=== PATIENT | female | born 1980 | race African-American/Black ===

== ENCOUNTER 2019-12-09 16:27 | Emergency (ER) | payer BC, SELFPAY ==
--- NOTE | ~2019-12-09 | XR_ITS ---
EXAMINATION: XR foot LT min 3V DATE: 12/09/2019 17:04 INDICATION: Left foot injury. TECHNIQUE: 4 views of left foot were obtained. COMPARISON: None. FINDINGS: Bone alignment is normal. No fracture. Joint spaces are well maintained. There are enthesop hytes at the posterior and plantar aspects of calcaneal tuberosity. IMPRESSION: 1. No fracture. Reviewed, dictated and finalized at location A. IMPRESSION: 1. No fracture.
[2019-12-09 16:41] VITALS: BP 121/74; PULSE 82; RESP 16; TEMP 36.7; O2SAT 100
--- NOTE | 2019-12-09 17:16 | ED.LOWEXIN ---
HPI - Extremity Injury (Lower) General Chief Complaint: Extremity Injury, Lower Stated Complaint: left foot injury Time Seen by Provider: 12/09/19 17:16 Source: patient Mode of arrival: ambulatory Limitations: no limitations History of Present Illness HPI Narrative: Cassie Dos Santos is a 39 yo frmale who fell off a porch on Friday and hurt L lateral ankle - Lateral swelling with pain, can move toes Related Data Allergies Allergy/AdvReac Type Severity Reaction Status Date / Time pregabalin Allergy Intermediate Rash Verified 12/09/19 17:13 Review of Systems Review of Systems: Narrative: CONSTITUTIONAL: Denies fever, chills, sweats. EYES: Denies visual changes, redness, discharge. ENT: Denies rhinorrhea, congestion, sore throat, otalgia. CARDIOVASCULAR: Denies chest pain, palpitations, edema. RESPIRATORY: Denies dyspnea, wheezing, cough GASTROINTESTINAL: Denies abdominal pain, nausea, vomiting, diarrhea. GENITOURINARY: Denies dysuria, hematuria, abnormal discharge SKIN: Denies rash or itching. NEUROLOGIC: Denies numbness, or focal weakness. PSYCHIATRIC: Denies anxiety or depression. Left lateral ankle swelling and pain PMFSH Past Medical History Medical History Diabetes Fractures Left leg Hypercholesteremia Hypertension Peripheral neuropathy Surgical History Surgical History History of orthopedic surgery Left knee Family History Family History Other Diabetes mellitus Heart disease Hypertension Social History Social History Smoking packs per day: 0.5 Smoking cigarettes per day: 10.0 Years smoked: 20 Smoking pack-years: 10.00 Smoking status: Current every day smoker Gender identity (if verbalized by the patient): Female Comments At time of signature, I agree with nursing past medical, surgical, social and family history. There is no relevant family history pertinent to the presenting complaint. Exam Narrative: Exam Narrative: GENERAL: This is a well-nourished, well-developed patient, in mild distress. HEAD: normocephalic, atraumatic. EYES: PERRL. Sclera clear/white. Vision is grossly intact. EARS: External ears normal, . Hearing grossly intact. NOSE: External nose normal without nasal discharge, nares without redness, no rhinorrhea. THROAT: Mucous membranes moist, NECK: Neck supple, CARDIOVASCULAR: Regular rate and rhythm without murmurs, gallops, or rubs. RESPIRATORY: Clear to auscultation. Breath sounds equal bilaterally. No wheezes, rales, or rhonchi. GASTROINTESTINAL: Abdomen soft, SKIN: warm, intact with no suspicious lesions or rash, good texture and turgor. NEURO: awake, alert, and oriented to person, place and time. There were no obvious focal neurologic abnormalities. Steady gait EXTREMITIES: Normal range of motion. Left ankle lateral swelling and tenderness; 2+ pedal pulse; able to move toes BACK: Nontender without deformity Course Course Emergency Course: X-ray left ankle results no fracture joint spaces well-maintained there is plantar aspects of calcaneal tuberosity has enthosophytes Strep applied started on Toradol use [id number]-weightbearing as tolerated Vital Signs Vital signs: Vital Signs Temperature 98.1 F 12/09/19 16:41 Pulse Rate 82 12/09/19 16:41 Respiratory Rate 16 12/09/19 16:41 Blood Pressure 121/74 12/09/19 16:41 Pulse Oximetry 100 12/09/19 16:41 Temperature 98.1 F 12/09/19 16:41 Pulse Rate 82 12/09/19 16:41 Respiratory Rate 16 12/09/19 16:41 Blood Pressure 121/74 12/09/19 16:41 Pulse Oximetry 100 12/09/19 16:41 MDM - Extremity Injury (Lower) Differential Diagnosis Differential diagnosis: Likely ankle sprain and strain, puncture wound of foot, ankle fracture and other Discharge Plan
== END 2019-12-09 17:35 | disposition home or self-care (01) ==
PROVIDERS: Emergency Provider Nurse Practitioner
DX: S93.402A Sprain of unspecified ligament of left ankle, initial encounter (principal); S96.912A Strain of unspecified muscle and tendon at ankle and foot level, left foot, initial encounter; W17.89XA Other fall from one level to another, initial encounter; F17.210 Nicotine dependence, cigarettes, uncomplicated; E11.42 Type 2 diabetes mellitus with diabetic polyneuropathy; E78.00 Pure hypercholesterolemia, unspecified; I10 Essential (primary) hypertension
CPT/HCPCS: 73630; 99213; G0463

== ENCOUNTER 2020-08-27 19:13 | Emergency (ER) | payer BC, SELFPAY ==
[2020-08-27 19:55] VITALS: BP 118/89; PULSE 102; RESP 18; TEMP 36.7; O2SAT 100
--- NOTE | 2020-08-27 20:36 | PC.NURSE ---
pt verbalized going to [employer] yesterday, riding rides, and her back starting hurting after that.
--- NOTE | 2020-08-27 21:07 | ED.GENADULT ---
HPI - General Adult General Chief complaint: Unspecified Stated complaint: pain in hands Time Seen by Provider: 08/27/20 20:34 Source: patient Mode of arrival: ambulatory Limitations: no limitations History of Present Illness HPI narrative: Patient is a 40-year-old female who presents with bilateral hand and back pain after going to [employer] prior day and writing every roller coaster patient with history of chronic pain and neuropathy patient on arrival to emergency department is in no distress does not appear uncomfortable patient has not taken anything for her symptoms nor is she been seen for this complaint Related Data Home Medications Medication Instructions Recorded Confirmed atorvastatin 08/27/20 metformin mg 08/27/20 Allergies Allergy/AdvReac Type Severity Reaction Status Date / Time pregabalin Allergy Intermediate Rash Verified 08/27/20 19:54 Review of Systems Review of Systems: All systems reviewed & are unremarkable except as noted in HPI and below PMFSH Past Medical History Medical History (Updated 08/27/20 @ 21:14 by Evan Fang PA-C) Diabetes Fractures Left leg Hypercholesteremia Hypertension Peripheral neuropathy Surgical History Surgical History History of orthopedic surgery Left knee Family History Family History Other Diabetes mellitus Heart disease Hypertension Social History Social History Smoking packs per day: 0.5 Smoking cigarettes per day: 10.0 Years smoked: 20 Smoking pack-years: 10.00 Smoking status: Current every day smoker Gender identity (if verbalized by the patient): Female Exam Narrative: Exam Narrative: GENERAL: Well-appearing, well-nourished, and in no acute distress. HEAD: Normocephalic, atraumatic. EYES: PERRLA and EOMI. ENT: Nares clear, no rhinorrhea or epistaxis. Mucous membranes moist. NECK: Supple. No adenopathy or masses. CHEST: Clear to auscultation. No respiratory distress. No wheezes rales or rhonchi HEART: Regular rate and rhythm. No murmur heard. EXTREMITIES: Normal range of motion. No edema. Paraspinal cervical thoracic lumbar tenderness SKIN: Warm, dry, no rash. NEURO: No focal deficits. Alert and oriented x3. Cranial nerves II through XII grossly intact PSYCH: Normal mood and affect. Course Course Emergency Course: Patient in the room no distress aware of case findings treatment plan diagnosis agreeing to follow-up as instructed Vital Signs Vital signs: Vital Signs Temperature 98.1 F 08/27/20 19:55 Pulse Rate 102 H 08/27/20 19:55 Respiratory Rate 18 08/27/20 19:55 Blood Pressure 118/89 08/27/20 19:55 Pulse Oximetry 100 08/27/20 19:55 Temperature 98.1 F 08/27/20 19:55 Pulse Rate 102 H 08/27/20 19:55 Respiratory Rate 18 08/27/20 19:55 Blood Pressure 118/89 08/27/20 19:55 Pulse Oximetry 100 08/27/20 19:55 Medical Decision Making MDM Narrative Medical decision making narrative: Patients injury or pain is consistent with musculoskeletal etiology. No signs of neurological or vascular compromise on exam. Compartments and tisues are soft without signs of compartment syndrome. Pain is felt appropriate for further evaluation on an outpatient basis. Vital Signs Vital Signs: Vital Signs Temperature 98.1 F 08/27/20 19:55 Pulse Rate 102 H 08/27/20 19:55 Respiratory Rate 18 08/27/20 19:55 Blood Pressure 118/89 08/27/20 19:55 Pulse Oximetry 100 08/27/20 19:55 Temperature 98.1 F 08/27/20 19:55 Pulse Rate 102 H 08/27/20 19:55 Respiratory Rate 18 08/27/20 19:55 Blood Pressure 118/89 08/27/20 19:55 Pulse Oximetry 100 08/27/20 19:55 Discharge Plan Discharge Clinical Impression: Cervical strain, Chronic hand pain Patient Disposition: Home, Self-Care Condition: Sta
== END 2020-08-27 21:27 | disposition home or self-care (01) ==
PROVIDERS: Emergency Provider Emergency Medicine
DX: M79.642 Pain in left hand (principal); M79.641 Pain in right hand; G89.29 Other chronic pain; S16.1XXA Strain of muscle, fascia and tendon at neck level, initial encounter; E78.00 Pure hypercholesterolemia, unspecified; I10 Essential (primary) hypertension; E11.42 Type 2 diabetes mellitus with diabetic polyneuropathy; Z79.84 Long term (current) use of oral hypoglycemic drugs; F17.210 Nicotine dependence, cigarettes, uncomplicated; X50.9XXA Other and unspecified overexertion or strenuous movements or postures, initial encounter; Y93.I1 Activity, roller coaster riding
CPT/HCPCS: 99283

== ENCOUNTER 2020-09-16 06:48 | Emergency (ER) | payer BC, SELFPAY ==
[2020-09-16 06:56] VITALS: BP 131/82; PULSE 91; RESP 16; TEMP 36.3; O2SAT 100
[2020-09-16 07:01] VITALS: BP 112/74; PULSE 85; RESP 18; TEMP 37.4; O2SAT 99
[2020-09-16 07:09] VITALS: BP 112/74; PULSE 84; RESP 18; TEMP 37.4; O2SAT 100
--- NOTE | 2020-09-16 07:10 | PC.NURSE ---
Pt presents to ED with complaints of sore throat and left ear pain for the past 4 days. 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 Pt states she has been gargling with salt water with some relief. Pt denies cough, nvd, fever, chills, chest pain and sob. Pt state she was at a constitution party last weekend where she was doing a lot of screaming and wonders if that may be the cause of her sore throat. Pt noted to be alert and oriented x4. Breathing even and unlabored and pt in no obvious distress at this time. Pt adds that she has been experiencing headaches and left neck pain; denies sick contacts. Pt alert and oriented x4 and pt in no obvious distress. Call button and personal items within reach. Pt advised to press call button for assistance.
--- NOTE | 2020-09-16 07:35 | ED.URI ---
HPI - URI/Sore Throat General Chief Complaint: Dental/Oral Stated Complaint: strep throat Time Seen by Provider: 09/16/20 07:01 Source: patient Mode of arrival: ambulatory Limitations: no limitations History of Present Illness HPI Narrative: This is a 40 year old female who presents for evaluation of sore throat. She states she went to a libertarian last weekend. She states she was yelling alot trying to talk over the music. She noticed after that she had a sore throat. Initially she states she had pain with talking, but that has resolved. She still has some sore throat so she wanted to make sure she did not need antibiotics. She has been gargling salt water with improvement. She also complains of left ear pain and an intermittent headache. she denies fever, chills, cough or sob. Her strep was negative. MD elicited complaint: sore throat Related Data Home Medications Medication Instructions Recorded Confirmed atorvastatin 08/27/20 metformin mg 08/27/20 Allergies Allergy/AdvReac Type Severity Reaction Status Date / Time pregabalin Allergy Intermediate Rash Verified 08/27/20 19:54 Review of Systems Review of Systems: All systems reviewed & are unremarkable except as noted in HPI and below Constitutional: Constitutional: Denies chills and Denies fever(s) ENT: Reports sore throat Cardiovascular: Cardiovascular: Denies chest pain Respiratory: Respiratory: Denies cough and Denies dyspnea Gastrointestinal: Gastrointestinal: Denies abdominal pain, Denies diarrhea and Denies vomiting PMFSH Past Medical History Medical History (Updated 09/16/20 @ 07:42 by Mary Ann Cardona MD) Diabetes Fractures Left leg Hypercholesteremia Hypertension Peripheral neuropathy Surgical History Surgical History History of orthopedic surgery Left knee Family History Family History Other Diabetes mellitus Heart disease Hypertension Social History Social History Smoking packs per day: 0.5 Smoking cigarettes per day: 10.0 Years smoked: 20 Smoking pack-years: 10.00 Smoking status: Current every day smoker Gender identity (if verbalized by the patient): Female Exam Const: General: no acute distress and alert Orientation/consciousness: patient oriented x3 HENMT: Head: normocephalic and atraumatic Ears: external ears normal and TM's normal bilaterally General nose exam: Normal nares present and No nasal polyps present Face and sinus: face symmetric Mouth: Yes lip normal, Yes tongue normal, Yes oropharynx normal, Yes moist mucous membranes and Yes moist mucous membranes abnormal Throat: posterior oropharynx normal, tonsils normal and uvula midline Eyes: EOM: EOMs intact bilaterally Chest: Chest palpation & inspection: normal inspection of the chest Resp: Effort & Inspection: normal respiratory effort and no retractions Auscultation: clear to auscultation bilaterally Cardio: Rate: regular rate Rhythm: regular rhythm Heart sounds: no murmurs Skin: General skin exam: normal color Rashes: no rashes Neuro: General: patient oriented x3, moves all extremities and CN's II-XI intact bilaterally Course Reevaluation(s) Reevaluation #1: I have discussed with patient that she will be tested for COvID for her headache, and sore throat and going to a libertarian. I also discussed symptoms likely viral and no need for antibiotics. Date: 09/16/20 Time: 07:40 Vital Signs Vital signs: Vital Signs Temperature 97.3 F L 09/16/20 06:56 Pulse Rate 91 09/16/20 06:56 Respiratory Rate 16 09/16/20 06:56 Blood Pressure 131/82 09/16/20 06:56 Pulse Oximetry 100 09/16/20 06:56 Temperature 99.4 F 09/16/20 07:09 Pulse Rate 84 09/16/20 07:09 Respiratory Rate 18 09/16/20 07:09 Blood Pressure 112/74 08/25
[2020-09-16 20:54] LABS: SARS-CoV-2 RNA PCR Negative
== END 2020-09-16 08:02 | disposition home or self-care (01) ==
PROVIDERS: Emergency Provider General Practice; PCP Family Medicine
DX: J02.9 Acute pharyngitis, unspecified (principal); Z20.822 Contact with and (suspected) exposure to COVID-19; E78.00 Pure hypercholesterolemia, unspecified; E11.42 Type 2 diabetes mellitus with diabetic polyneuropathy; I10 Essential (primary) hypertension; Z79.84 Long term (current) use of oral hypoglycemic drugs
CPT/HCPCS: 87081; 87880; 99283; C9803; U0003; U0005

== ENCOUNTER 2021-01-11 16:35 | Emergency (ER) | payer BC, SELFPAY ==
--- NOTE | 2021-01-11 16:43 | PC.NURSE ---
pt states she will be going to urgent care
--- NOTE | 2021-01-11 16:43 | PC.NURSE ---
pt amb out of building with steady gait and in no distress
== END 2021-01-11 16:43 | disposition left against medical advice (07) ==
DX: Z53.21 Procedure and treatment not carried out due to patient leaving prior to being seen by health care provider (principal)
CPT/HCPCS: 99199

== ENCOUNTER 2021-01-11 17:01 | Emergency (ER) | payer BC, SELFPAY ==
[2021-01-11 17:21] VITALS: BP 110/69; PULSE 87; RESP 20; TEMP 36.3; O2SAT 99
== END 2021-01-11 18:10 | disposition left against medical advice (07) ==
LOC: EXPCOLL 17:07
PROVIDERS: Emergency Provider Nurse Practitioner Family; PCP Family Medicine
DX: Z53.21 Procedure and treatment not carried out due to patient leaving prior to being seen by health care provider (principal)
CPT/HCPCS: 99199

== ENCOUNTER 2021-02-01 16:31 | Emergency (ER) | payer BC, SELFPAY ==
[2021-02-01 16:49] VITALS: BP 126/77; PULSE 80; RESP 16; TEMP 36.3; O2SAT 100
--- NOTE | 2021-02-01 18:52 | ED.GENADULT ---
HPI - General Adult General Chief complaint: Unspecified Stated complaint: Needs Suboxon Time Seen by Provider: 02/01/21 16:54 Source: patient Mode of arrival: ambulatory Limitations: no limitations History of Present Illness HPI narrative: Patient presents to the emergency department wanting Suboxone refill. Patient states that she missed her appointment and the sooner she can get into her Suboxone clinic is on and she does not want to wait that long. Patient has a history of opioid abuse. Patient has not having withdrawal symptoms at this time. Patient states that she was told to come to the emergency department and we will refill her medications until her next clinic appointment. Related Data Home Medications Medication Instructions Recorded Confirmed atorvastatin 08/27/20 metformin mg 08/27/20 Allergies Allergy/AdvReac Type Severity Reaction Status Date / Time pregabalin Allergy Intermediate Rash Verified 02/01/21 16:51 Review of Systems Review of Systems: CONSTITUTIONAL: Denies fever, chills, or sweats. EYES: Denies visual changes, redness, or discharge. ENT: Denies rhinorrhea, congestion, sore throat, or otalgia. CARDIOVASCULAR: Denies chest pain, palpitations, or edema. RESPIRATORY: Denies cough or dyspnea. GASTROINTESTINAL: Denies abdominal pain, nausea, vomiting, or diarrhea. GENITOURINARY: Denies dysuria or hematuria. SKIN: Denies rash or itching. MUSCULOSKELETAL: Denies back pain, joint pain, or myalgia. NEUROLOGIC: Denies headache, numbness, dizziness, or weakness. PSYCHIATRIC: Denies anxiety or depression. [facility] Past Medical History Medical History (Updated 02/01/21 @ 20:52 by Perry Rouse PA-C) Diabetes Fractures Left leg Hypercholesteremia Hypertension Peripheral neuropathy Surgical History Surgical History History of orthopedic surgery Left knee Family History Family History Other Diabetes mellitus Heart disease Hypertension Social History Social History Smoking packs per day: 0.5 Smoking cigarettes per day: 10.0 Years smoked: 20 Smoking pack-years: 10.00 Smoking status: Current every day smoker Gender identity (if verbalized by the patient): Female Exam Narrative: GENERAL: Well-appearing, well-nourished, and in no acute distress. HEAD: Normocephalic, atraumatic. CHEST: Breathing at a regular rate without difficulty or signs of distress NEURO: No focal deficits. Alert and oriented x3. PSYCH: Normal mood and affect. Course Vital Signs Vital signs: Vital Signs Temperature 97.4 F L 02/01/21 16:49 Pulse Rate 80 02/01/21 16:49 Respiratory Rate 16 02/01/21 16:49 Blood Pressure 126/77 02/01/21 16:49 Pulse Oximetry 100 02/01/21 16:49 Temperature 97.4 F L 02/01/21 16:49 Pulse Rate 80 02/01/21 16:49 Respiratory Rate 16 02/01/21 16:49 Blood Pressure 126/77 02/01/21 16:49 Pulse Oximetry 100 02/01/21 16:49 Medical Decision Making MDM Narrative Medical decision making narrative: Inform patient that Suboxone will not be prescribed in emergency department. Instructed her to contact her clinic where she received her Suboxone prescription and see if she can obtain an earlier appointment or go to an alternate office where they will be tomorrow. Patient got up and left the emergency department and declined further examination or conversation. Vital Signs Vital Signs: Vital Signs Temperature 97.4 F L 02/01/21 16:49 Pulse Rate 80 02/01/21 16:49 Respiratory Rate 16 02/01/21 16:49 Blood Pressure 126/77 02/01/21 16:49 Pulse Oximetry 100 02/01/21 16:49 Temperature 97.4 F L 02/01/21 16:49 Pulse Rate 80 02/01/21 16:49 Respiratory Rate 16 02/01/21 16:49 Blood Pressure 126/77 02/01/21 16:49 Pulse Oximetry 100 02/01/21 16:49
== END 2021-02-01 17:28 | disposition left against medical advice (07) ==
PROVIDERS: Emergency Provider Emergency Medicine; PCP Family Medicine
DX: F11.10 Opioid abuse, uncomplicated (principal); E78.00 Pure hypercholesterolemia, unspecified; I10 Essential (primary) hypertension; E11.42 Type 2 diabetes mellitus with diabetic polyneuropathy; Z79.84 Long term (current) use of oral hypoglycemic drugs; F17.210 Nicotine dependence, cigarettes, uncomplicated
CPT/HCPCS: 99281

== ENCOUNTER 2021-06-16 07:02 | Emergency (ER) | payer BC, SELFPAY ==
--- NOTE | ~2021-06-16 | XR_ITS ---
XR ankle LT min 3V DATE: 06/16/2021 07:49 INDICATION: Left ankle sprain several months ago. Lateral ankle pain TECHNIQUE: 4 views COMPARISON: None FINDINGS: Mild anterolateral ankle soft tissue swelling. No fracture or dislocation of the ankle or d isruption of the ankle mortise. No periosteal reaction or bone destruction. There is slight plantar calcaneal enthesopathy. IMPRESSION: Mild anterolateral ankle soft tissue swelling; no fracture or dislocation Reviewed, dictated and finalized at location A. [employer] IMPRESSION: Mild anterolateral ankle soft tissue swelling; no fracture or dislo cation
[2021-06-16 07:06] VITALS: BP 144/85; PULSE 97; RESP 18; TEMP 36.7; O2SAT 100
[2021-06-16 07:23] VITALS: BP 104/73; PULSE 99; RESP 15; TEMP 36.7; O2SAT 99
--- NOTE | 2021-06-16 07:43 | ED.LOWEXIN ---
HPI - Extremity Injury (Lower) General Chief Complaint: Extremity Injury, Lower Stated Complaint: ankle pain after fall Time Seen by Provider: 06/16/21 07:11 History of Present Illness HPI Narrative: Patient is a 41-year-old female with history of diabetes that presents ER with left ankle pain. Had a trip and fall 1 year ago while holding onto a railing. Reports she initially got better but then over the past year she started having increased pain over her lateral malleolus. She has burning and tingling in her foot. She reports she has similar sensation right foot but it is more intense than the left. Patient has history of diabetic neuropathy in her hands but has never been diagnosed in her feet. No new injury, endorses swelling to the ankle that is chronic, no extremity swelling. No redness/fever/chest pain/shortness with. Related Data Home Medications Medication Instructions Recorded Confirmed atorvastatin 08/27/20 metformin mg 08/27/20 Allergies Allergy/AdvReac Type Severity Reaction Status Date / Time pregabalin Allergy Intermediate Rash Verified 02/01/21 16:51 Review of Systems Constitutional: Constitutional: Denies chills and Denies fever(s) Musculoskeletal: Musculoskeletal: Reports arthralgias, Reports joint swelling and Denies muscle cramps Neurologic: Denies focal weakness and Reports numbness Comments: Burning in foot PMFSH Past Medical History Medical History (Updated 06/16/21 @ 08:07 by Satish Singh MD) Diabetes Fractures Left leg Hypercholesteremia Hypertension Peripheral neuropathy Surgical History Surgical History History of orthopedic surgery Left knee Family History Family History Other Diabetes mellitus Heart disease Hypertension Social History Social History Smoking packs per day: 0.5 Smoking cigarettes per day: 10.0 Years smoked: 20 Smoking pack-years: 10.00 Smoking status: Current every day smoker Gender identity (if verbalized by the patient): Female Exam Narrative: GENERAL: Well-appearing, well-nourished, and in no acute distress. HEAD: Normocephalic, atraumatic. HEART: Regular rate and rhythm. Normal peripheral pulses. EXTREMITIES: Normal range of motion. No edema. Mild tenderness over the left malleolus in the middle. No redness. SKIN: Warm, dry, no rash. NEURO: Alert and oriented x3. PSYCH: Normal mood and affect. Course Course Emergency Course: Informed of results. Recommend follow-up with PCP. She may ice and elevate the area. Should also discuss possible neuropathy with PCP. No evidence of gout or infection. Vital Signs Vital signs: Vital Signs Temperature 98.1 F 06/16/21 07:06 Pulse Rate 97 06/16/21 07:06 Respiratory Rate 18 06/16/21 07:06 Blood Pressure 144/85 H 06/16/21 07:06 Pulse Oximetry 100 06/16/21 07:06 Temperature 98.1 F 06/16/21 07:23 Pulse Rate 99 06/16/21 07:23 Respiratory Rate 15 06/16/21 07:23 Blood Pressure 104/73 06/16/21 07:23 Pulse Oximetry 99 06/16/21 07:23 MDM - Extremity Injury (Lower) Imaging Data Radiologist's impression: ITS Impressions Ankle X-Ray 06/16/21 07:57 IMPRESSION: Mild anterolateral ankle soft tissue swelling; no fracture or dislocation Discharge Plan Discharge Clinical Impression: Acute left ankle pain Patient Disposition: Home, Self-Care Condition: Stable Instructions: Ankle Sprain (ED), P.R.I.C.E. Treatment (ED) Additional Instructions: Follow-up with your primary care doctor. Return to the ER if you have fever over 101F, you cannot keep down food/water, you have chest pain with shortness of breath. Prescriptions: No Action metformin 500 mg tablet RF: 0 atorvastatin 20 mg tablet RF: 0 acetaminophen [Tylenol Arthri
[2021-06-16 08:27] VITALS: PULSE 92; RESP 16; O2SAT 100
== END 2021-06-16 08:28 | disposition home or self-care (01) ==
LOC: ANHED 08:07
PROVIDERS: Emergency Provider Emergency Medicine; PCP Family Medicine
DX: M25.572 Pain in left ankle and joints of left foot (principal); E78.00 Pure hypercholesterolemia, unspecified; I10 Essential (primary) hypertension; E11.42 Type 2 diabetes mellitus with diabetic polyneuropathy; F17.210 Nicotine dependence, cigarettes, uncomplicated; Z79.84 Long term (current) use of oral hypoglycemic drugs
CPT/HCPCS: 73610; 99283